=== PATIENT | male | born 1955 | race Caucasian/White ===

== ENCOUNTER 2020-04-19 16:28 | Inpatient (IN) | payer MEDICARE ==
[~2020-04-19] VITALS: Ht 172.7 cm; Wt 102.4 kg
--- OUTSIDE RECORDS SUMMARY | 2020-04-19 16:38 | CCD ---
Author Author [facility] Organization [facility] Address Unknown Phone Unavailable Support Name Relationship Address Phone RE Next Of Kin Unknown Unavailable CHEMICAL INTERCHANGE Next Of Kin Unknown Unavailable VINAY CLAROS Next Of Kin [address] [place], [place] [id number] Re-disclosure Warning The records that you are about to access may contain information from federally-assisted alcohol or drug abuse programs. If such information is present, then the following federally mandated warning applies: This information has been disclosed to you from records protected by federal confidentiality rules (42 CFR part 2). The federal rules prohibit you from making any further disclosure of this information unless further disclosure is expressly permitted by the written consent of the person to whom it pertains or as otherwise permitted by 42 CFR part 2. A general authorization for the release of medical or other information is NOT sufficient for this purpose. The Federal rules restrict any use of the information to criminally investigate or prosecute any alcohol or drug abuse patient.The records that you are about to access may contain highly sensitive health information, the redisclosure of which is protected by Article 27-F of the [facility] Public Health law. If you continue you may have access to information: Regarding HIV / AIDS; Provided by facilities licensed or operated by the [facility] Office of Mental Health; or Provided by the [facility] Office for People With Developmental Disabilities. If such information is present, then the following [facility] mandated warning applies: This information has been disclosed to you from confidential records which are protected by state law. State law prohibits you from making any further disclosure of this information without the specific written consent of the person to whom it pertains, or as otherwise permitted by law. Any unauthorized further disclosure in violation of state law may result in a fine or senior living sentence or both. A general authorization for the release of medical or other information is NOT sufficient authorization for further disc losure. Insurance Providers Payer name Policy type / Coverage type Policy ID Covered alliance party ID Covered alliance party's relationship to desai Policy Desai Plan Information MEDICARE [id number] A
[2020-04-19 17:40] LABS: BASO % 0.1 % (0.0-1.0); EOS % 0.1 % (0.0-3.0); HEMATOCRIT 39.1 % (42.0-52.0); HEMOGLOBIN 13.2 g/dl (13.5-17.5); LYMPH # 0.8 10^3/uL (1.5-5.0); LYMPH % 7.4 % (24.0-44.0); MEAN CORPUSCULAR HEMOGLOBIN 31.2 pg (27.0-33.0); MEAN CORPUSCULAR HGB CONC 33.8 g/dl (32.0-36.5); MEAN CORPUSCULAR VOLUME 92.4 fl (80.0-96.0); MONO # 0.5 10^3/uL (0.0-0.8); MONO % 4.5 % (0.0-5.0); NEUTROPHILS # 8.8 10^3/uL (1.5-8.5); NEUTROPHILS % 86.9 % (36.0-66.0); PLATELET COUNT, AUTOMATED 256 10^3/uL (150-450); RED BLOOD COUNT 4.23 10^6/uL (4.30-6.10); WHITE BLOOD COUNT 10.1 10^3/uL (4.0-10.0)
[2020-04-19 17:55] LABS: INR 1.08; PARTIAL THROMBOPLASTIN TIME 20.9 SECONDS (24.2-38.5); PROTHROMBIN TIME 14.2 SECONDS (12.5-14.3)
[2020-04-19 17:58] LABS: D-DIMER QUANT 3035.16 ng/ml (<500)
[2020-04-19] MEDS ORDERED: AZITHROMYCIN INJ 500 MG, VIAL MATE ADAPTER 1 EACH in D5W 250 ML IV ONE (18:00)
[2020-04-19] MEDS ORDERED: cefTRIAXone SOD 1 GM in D5W MINI-BAG PLUS 50 ML IV ONE (18:00)
[2020-04-19 18:06] LABS: ALT/SGPT 29 U/L (12-78); BILIRUBIN,TOTAL 0.5 MG/DL (0.2-1.0); BLOOD UREA NITROGEN 18 MG/DL (7-18); CALCIUM LEVEL 8.5 MG/DL (8.8-10.2); CARBON DIOXIDE LEVEL 25 MEQ/L (21-32); CHLORIDE LEVEL 105 MEQ/L (98-107); CK-MB VALUE MASS < 1.0 NG/ML (<3.6); CPK CREATINE PHOSPHOKINASE 354 U/L (39-308); CREATININE FOR GFR 1.03 MG/DL (0.70-1.30); FERRITIN 899 NG/ML (26-388); GLOMERULAR FILTRATION RATE > 60.0 (>49); GLUCOSE, FASTING 107 MG/DL (70-100); LDH LACTATE DEHYDROGENASE 654 U/L (87-241); MB/CK RELATIVE INDEX 0.28 (< OR =4); POTASSIUM SERUM 4.2 MEQ/L (3.5-5.1); SODIUM LEVEL 137 MEQ/L (136-145); TOTAL PROTEIN 6.4 GM/DL (6.4-8.2); TROPONIN I < 0.02 NG/ML (< 0.10)
--- NOTE | 2020-04-19 18:09 | REP ---
INDICATION: sob. COMPARISON: 08/15/2010 TECHNIQUE: Portable exam FINDINGS: The technique utilized in obtaining the radiograph has magnified the cardiac silhouette and accentuated the interstitial markings. Patchy interstitial and airspace opacities are seen throughout the lung [place] and right greater than left. Mild cardiomegaly is suspected accentuated by technique. The pleural angles are sharp. The osseous structures are stable and intact. IMPRESSION: There is either asymmetric pulmonary edema from cardiogenic or other causes versus pneumonia. <Electronically signed by Delmer Phoenix > 04/19/20 [id number]
[2020-04-19] MEDS ORDERED: guaiFENesin SYRUP 200 MG/10 ML UDC PO PRN (19:45)
--- OUTSIDE RECORDS SUMMARY | 2020-04-19 19:47 | CCD ---
Author Author [facility] Address Unknown Phone Unavailable Support Name Relationship Address Phone RE Next Of Kin Unknown Unavailable CHEMICAL INTERCHANGE Next Of Kin Unknown Unavailable VINAY MOORE Next Of Kin [address] [place] [address] Re-disclosure Warning The records that you are [...] is protected by Article 27-F of the [facility] Public Health law. If you continue you may have access to information: Regarding HIV / AIDS; Provided by facilities licensed or operated by the [facility] Office of Mental Health; or Provided by the [facility] Office for People With Developmental Disabilities. If such information is present, then the following [facility] mandated warning applies: This information has [...] law may result in a fine or fdc sentence or both. A general authorization for the release of medical or other information is NOT sufficient authorization for further disc losure. Insurance Providers Payer name Policy type / Coverage type Policy ID Covered republican ID Covered republican's relationship to desai Policy Desai Plan Information MEDICARE [id number] A
--- NOTE | 2020-04-19 19:48 | HPEPDOC ---
[facility] Medical History & Physical Date of Admission Apr 19, 2020 Date of Service: Apr 19, 2020 History and Physical CHIEF COMPLAINT: Shortness of breath HISTORY OF PRESENT ILLNESS: 64-year-old male no known past medical history known to be Covid positive with symptoms onset 15 days ago who presents with increased shortness of breath and cough. Patient tells me that he lives at home with his and son both her Covid positive his son is admitted to the hospital with Covid. His is doing well at home. Patient tells me he's been trying to manage his symptoms at home but he's been progressively getting weaker his appetite is decreased and he is not eating much and he's been having increased shortness of breath but his most troublesome symptom lately has been his uncontrollable cough which is followed by episodes of nausea but no vomiting. He also endorses some fevers and chills at home. Patient denies any chest pain. In the emergency department patient was found to be hypoxic down to 80% requiring supplemental oxygen he is currently saturating at 92% on 2 L of supplemental oxygen by nasal cannula. He was also given 1 dose of ceftriaxone and azithromycin. Inflammatory Covid markers were completed were found to be elevated. 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 REVIEW OF SYSTEMS: 10 point review of systems complete all negative otherwise stated in HPI HOME MEDICATIONS: Please see below. PHYSICAL EXAMINATION: Constitutional: Awake and alert, in no apparent distress ENT: Sclera are clear Respiratory: Lungs CTA bilaterally. No respiratory distress. No use of accessory muscles. on 2L o2 by NC saturating 92% Cardiovascular: RRR S1 and S2 are normal, no murmur Gastrointestinal: Abdomen is soft, non distended, non tender, BS present. Musculoskeletal: No lower extremity edema. Neurologic: No focal neurological deficit. Mental Status: A&O x3, normal affect Skin: Warm, dry LABORATORY DATA: See below. IMAGING: cxr impressions: There is either asymmetric pulmonary edema from cardiogenic or other causes versus pneumonia. MICROBIOLOGY: Please see below. ASSESSMENT/PLAN 64M: COVID+ no known past medical history onset of Covid 15 days ago has been progressively worsening with increased dyspnea and cough fevers and chills. Possible superimposed bacterial pneumonia, requiring supplemental oxygen was admitted for medical management. # Hypoxic respiratory failure 2/2 Covid 19 infection with possible superimposed bacterial pneumonia: - Initial inflammatory markers elevated. Trend inflammatory markers. IV Decadron daily. Lovenox COVID prophylactic dosing due to obesity. Continue supplemental oxygen O2 target 90% or better. Out of window for rimdasivir, symptoms onset 15 days ago. - Possible superimposed bacterial pneumonia. Started IV ceftriaxone and azithromycin. Follow blood cultures. follow-up pro-calcitonin if negative can DC Abx. # DVT prophylaxis: Lovenox COVID prophylactic dosing. A [facility] Hospitalist Vital Signs Vital Signs Date Time Temp Pulse Resp B/P (MAP) Pulse Ox O2 Delivery O2 Flow Rate FiO2 04/19/20 18:43 62 22 91 04/19/20 18:21 Nasal Cannula 04/19/20 18:16 2.0 04/19/20 18:07 98.2 111/56 Laboratory Data Labs 24H Laboratory Tests 2 04/19/20 17:24: Immature Granulocyte % (Auto) 1.0, Neutrophils (%) (Auto) 86.9H, Lymphocytes (%) (Auto) 7.4L, Monocytes (%) (Auto) 4.5, Eosinophils (%) (Auto) 0.1, Basophils (%) (Auto) 0.1, Neutrophils # (Auto) 8.8H, Lymphocytes # (Auto) 0.8L, Monocytes # (Auto) 0.5, Eosinophils # (Auto) 0.0, Basophils # (Auto) 0.0, Nucleated Red Blood Cells % (auto) 0.0, Prothrombin Time 14.2H, Prothromb Time International Ratio 1.08, Activated Partial Thromboplast Time 20.9L, Fibrinogen 569H, D-Dimer, Quantitative 3035.16H, Anion Gap 7L, Glomerular Filtration Rate > 60.0, Calcium Level 8.5L, Magnesium Level 2.0, Ferritin 899H, Total Bilirubin 0.5, Aspartate Amino Transf (AST/SGOT) 52H, Alanine Aminotransferase (ALT/SGPT) 29, Alkaline Phosphatase 53, Lactate Dehydrogenase 654H, Total Creatine Kinase 354H, Creatine Kinase MB < 1.0, Creatine Kinase MB Relative Index 0.28, Troponin I < 0.02, C- Reactive Protein, Quantitative 14.50H, Total Protein 6.4, Albumin 3.0L, Albumin/Globulin Ratio 0.9, Procalcitonin 0.23 04/19/20 17:40: Lactic Acid Level 1.3 CBC/BMP Laboratory Tests 04/19/20 17:24 Microbiology Microbiology 04/19/20 Blood Culture, Received Pending 04/19/20 Blood Culture, Received Pending Home Medications No Active Prescriptions or Reported Meds Allergies Coded Allergies: No Known Allergies (Unverified , 04/19/20) A-FIB/CHADSVASC A-FIB History Current/History of A-Fib/PAF?: No YOUSEJUAN LUIS Bustillo MD Apr 19, 2020 19:47
--- OUTSIDE RECORDS SUMMARY | 2020-04-19 19:57 | CCD ---
Author Author [facility] Address Unknown Phone Unavailable Support Name Relationship Address Phone RE Next Of Kin Unknown Unavailable CHEMICAL INTERCHANGE Next Of Kin Unknown Unavailable VINAY MOORE Next Of Kin [address] [place] [address] Re-disclosure Warning The records that you are [...] is protected by Article 27-F of the [facility] Public Health law. If you continue you may have access to information: Regarding HIV / AIDS; Provided by facilities licensed or operated by the [facility] Office of Mental Health; or Provided by the [facility] Office for People With Developmental Disabilities. If such information is present, then the following [facility] mandated warning applies: This information has [...] type / Coverage type Policy ID Covered libertarian ID Covered libertarian's relationship to desai Policy Desai Plan Information MEDICARE [id number] A
[2020-04-19] MEDS: BENZONATATE 100 MG CAP PO SCH (22:34)
[2020-04-19 23:09] VITALS: BP 148/61
[2020-04-20] VITALS (10 sets, daily range): BP systolic 124–135; BP diastolic 61–73; O2SAT 90–94
[2020-04-20] MEDS: dexameTHASONE 4 MG/ML 1ML VIAL (J1100 PER 1MG) IV SCH ×2 (00:13→10:26)
[2020-04-20] MEDS: ENOXAPARIN 60MG/0.6ML SYRINGE (J1650 PER 10MG) SC SCH ×2 (00:14→10:27)
[2020-04-20] MEDS ORDERED: ACETAMINOPHEN TAB 650MG DOSE (2X325MG) PO PRN (02:00)
[2020-04-20 06:53] LABS: HEMATOCRIT 38.2 % (42.0-52.0); HEMOGLOBIN 12.8 g/dl (13.5-17.5); MEAN CORPUSCULAR HEMOGLOBIN 31.4 pg (27.0-33.0); MEAN CORPUSCULAR HGB CONC 33.5 g/dl (32.0-36.5); MEAN CORPUSCULAR VOLUME 93.6 fl (80.0-96.0); PLATELET COUNT, AUTOMATED 272 10^3/uL (150-450); RED BLOOD COUNT 4.08 10^6/uL (4.30-6.10); WHITE BLOOD COUNT 8.6 10^3/uL (4.0-10.0)
[2020-04-20 07:20] LABS: BLOOD UREA NITROGEN 21 MG/DL (7-18); CALCIUM LEVEL 8.6 MG/DL (8.8-10.2); CARBON DIOXIDE LEVEL 29 MEQ/L (21-32); CHLORIDE LEVEL 104 MEQ/L (98-107); CREATININE FOR GFR 1.14 MG/DL (0.70-1.30); GLOMERULAR FILTRATION RATE > 60.0 (>49); GLUCOSE, FASTING 125 MG/DL (70-100); MAGNESIUM LEVEL 2.3 MG/DL (1.8-2.4); POTASSIUM SERUM 4.5 MEQ/L (3.5-5.1); SODIUM LEVEL 138 MEQ/L (136-145)
[2020-04-20 07:24] LABS: ALBUMIN 2.6 GM/DL (3.2-5.2); BILIRUBIN,DIRECT 0.2 MG/DL (0.0-0.2); BILIRUBIN,TOTAL 0.5 MG/DL (0.2-1.0); C REACTIVE PROTEIN QUANTITATIV 14.8 MG/DL (0.00-0.30); TOTAL PROTEIN 5.9 GM/DL (6.4-8.2)
[2020-04-20 07:31] LABS: D-DIMER QUANT 3381.78 ng/ml (<500)
[2020-04-20 07:38] LABS: ANISOCYTOSIS 1+; LYMPHOCYTES 6 % (16-44); MONOCYTES 3 % (0-5); NEUTROPHILS 90 % (28-66); PLATELET ESTIMATE NORMAL (NORMAL)
--- NOTE | 2020-04-20 08:35 | ECGEPIP ---
[facility] - ED Test Date: 2020-04-19 Pat Name: PADMINI MOORE Department: Room: - Gender: Male Shampooer: : 1955 Requested By: Marisol Chahal Order Number: [id number] Reading MD: Ignacio Mark Measurements Intervals [place] Rate: 72 P: 24 VA: 172 QRS: -20 QRSD: 104 T: 0 QT: 388 QTc: 427 Interpretive Statements SINUS RHYTHM MODERATE VOLTAGE CRITERIA FOR LVH, CONSIDER NORMAL VARIANT POOR R WAVE PROGRESSION NO PRIORS FOR COMPARISON Electronically Signed on 04-20-2020 8:34:51 EST by Ignacio Mark
[2020-04-20] MEDS: BENZONATATE 100 MG CAP PO SCH ×3 (10:27→23:27)
[2020-04-20] MEDS ORDERED: ISOVUE-370 76% 100ML VIAL As Ordered ONE (11:43)
--- NOTE | 2020-04-20 12:24 | REP ---
INDICATION: R/O PE. Patient has COVID-19. COMPARISON: None TECHNIQUE: CT angiography. 100 cc Isovue 370. FINDINGS: There is excellent visualization of the pulmonary arterial vasculature. There are no focal filling defects present that would be considered consistent with acute pulmonary emboli. There are no pleural or pericardial effusions. The imaged upper abdomen and imaged osseous structures are within normal limits. Evaluation of the lung [place] shows extensive right lung and moderate left lung airspace and ground-glass opacities. IMPRESSION: 1. There is no evidence of an acute pulmonary embolus. 2. Abnormal lung field opacities consistent with the patient's diagnosis of COVID-19 pneumonia. <Electronically signed by Delmer Phoenix > 04/20/20 [id number]
[2020-04-20] MEDS ORDERED: ONDANSETRON 4MG/2ML VIAL IV PRN (13:30)
[2020-04-20] MEDS ORDERED: GUAI100S51 PO (14:47)
[2020-04-20] MEDS ORDERED: AUGM875T28 PO (14:47)
[2020-04-20] MEDS ORDERED: VENTAER INH (14:47)
[2020-04-20] MEDS ORDERED: ZOFR4TAB16 PO (14:47)
[2020-04-20] MEDS ORDERED: DEXA1TA PO (14:47)
--- NOTE | 2020-04-20 14:53 | DS.PDOC ---
Discharge Summary General Date of Admission Apr 19, 2020 at 19:29 Date of Discharge 04/20/20 Discharge Summary Chief complaints Shortness of breath Final diagnosis Covid 19 interstitial pneumonia Hypoxic respiratory failure History of present illness and Hospital course 64-year-old male no known past medical history known to be Covid positive with symptoms onset 15 days ago who presents with increased shortness of breath and cough. Patient sees that he lives at home with his and son both her Covid positive his son is admitted to the hospital with Covid. His is doing well at home. Patient tells me he's been trying to manage his symptoms at home but he's been progressively getting weaker his appetite is decreased and he is not eating much and he's been having increased shortness of breath but his most troublesome symptom lately has been his uncontrollable cough which is followed by episodes of nausea but no vomiting. In the emergency department patient was found to be hypoxic down to 80% requiring supplemental oxygen he is currently saturating at 92% on 2 L of supplemental oxygen by nasal cannula. He was also given 1 dose of ceftriaxone and azithromycin. Inflammatory Covid markers were completed were found to be elevated. This morning he was doing better on 3-4 L. He passed a home oxygen evaluation and will be sent home on 3 L of oxygen at rest and 4 L on activity. He has been advised that he might require this oxygen for the next 3-4 weeks because of his interstitial Covid pneumonia. He got us CTA to rule out pulmonary embolism which came out to be negative, but the CAT scan did show interstitial pneumonia consistent Covid 19. He will be given albuterol inhalers along with Augmentin for 5 days. He also will be given to eczematous on for the next 7 days. He might require PFTs once his all symptoms are resolved in the next 4 weeks. He will be given a follow-up appointment with PCP in 1 week. I had a detailed discussion with him regarding his clinical condition and spoke to the daughter as well. I and my opinion, the maximal benefit has been opting from this stay and he has been advised that in case his symptoms worsen, he should report back to the ER or contact his PCP. PHYSICAL EXAMINATION: Constitutional: Awake and alert, in no apparent distress ENT: Sclera are clear Respiratory: Lungs CTA bilaterally. No respiratory distress. No use of accessory muscles. on 2L o2 by NC saturating 92% Cardiovascular: RRR S1 and S2 are normal, no murmur Gastrointestinal: Abdomen is soft, non distended, non tender, BS present. Musculoskeletal: No lower extremity edema. Neurologic: No focal neurological deficit. Mental Status: A&O x3, normal affect Skin: Warm LABORATORY DATA: See below. IMAGING: Reviewed Medications. As per discharge reconciliation medication list. , Albuterol, dexamethasone, Augmentin and Zofran have been added Activity as tolerated Diet. 2 g sodium diet Follow-up appointments. PCP in 1 week. Condition on discharge. Patient is medically optimized for discharge Discharge disposition: Home Total time spent on this discharge including coordination of care, review of chart documentation and actual patient contact is around 35 minutes Vital Signs/I&Os Vital Signs Date Time Temp Pulse Resp B/P (MAP) Pulse Ox O2 Delivery O2 Flow Rate FiO2 04/20/20 08:00 96.8 65 18 124/72 (89) 92 Nasal Cannula 4.0 I&O- Last 24 Hours up to 6 AM 04/20/20 06:00 Intake Total 305 ml Output Total 0 ml Balance 305 ml Laboratory Data Labs 24H Laboratory Tests 2 04/19/20 17:24: Immature Granulocyte % (Auto) 1.0, Neutrophils (%) (Auto) 86.9H, Lymphocytes (%) (Auto) 7.4L, Monocytes (%) (Auto) 4.5, Eosinophils (%) (Auto) 0.1, Basophils (%) (Auto) 0.1, Neutrophils # (Auto) 8.8H, Lymphocytes # (Auto) 0.8L, Monocytes # (Auto) 0.5, Eosinophils # (Auto) 0.0, Basophils # (Auto) 0.0, Nucleated Red Blood Cells % (auto) 0.0, Prothrombin Time 14.2H, Prothromb Time International Ratio 1.08, Activated Partial Thromboplast Time 20.9L, Fibrinogen 569H, D-Dimer, Quantitative 3035.16H, Anion Gap 7L, Glomerular Filtration Rate > 60.0, Calcium Level 8.5L, Magnesium Level 2.0, Ferritin 899H, Total Bilirubin 0.5, Aspartate Amino Transf (AST/SGOT) 52H, Alanine Aminotransferase (ALT/SGPT) 29, Alkaline Phosphatase 53, Lactate Dehydrogenase 654H, Total Creatine Kinase 354H, Creatine Kinase MB < 1.0, Creatine Kinase MB Relative Index 0.28, Troponin I < 0.02, C- Reactive Protein, Quantitative 14.50H, Total Protein 6.4, Albumin 3.0L, Albumin/Globulin Ratio 0.9, Procalcitonin 0.23 04/19/20 17:40: Lactic Acid Level 1.3 04/19/20 19:58: Procalcitonin 0.16 04/20/20 06:14: Neutrophils (%) (Auto) , Nucleated Red Blood Cells % (auto) 0.0, Fibrinogen 585H, D-Dimer, Quantitative 3381.78H, Anion Gap 5L, Glomerular Filtration Rate > 60.0, Calcium Level 8.6L, Magnesium Level 2.3, Ferritin 884H, Total Bilirubin 0.5, Aspartate Amino Transf (AST/SGOT) 47H, Alanine Aminotransferase (ALT/SGPT) 27, Alkaline Phosphatase 52, Lactate Dehydrogenase 568H, C-Reactive Protein, Quantitative 14.80H, Total Protein 5.9L, Albumin 2.6L, Albumin/Globulin Ratio 0.8, Neutrophils 90H, Band Neutrophils 1, Lymphocytes (Manual) 6L, Monocytes (Manual) 3, Anisocytosis 1+, Platelet Estimate NORMAL, Direct Bilirubin 0.2 CBC/BMP Laboratory Tests 04/19/20 17:24 04/20/20 06:14 Microbiology Microbiology 04/19/20 Blood Culture, Received Pending 04/19/20 Blood Culture, Received Pending Discharge Medications Scheduled Amoxicillin/Potassium Clav (Augmentin 875-125 Tablet) 1 Each Tablet, 1 TAB PO BID Dexamethasone (Dexamethasone) 1 Mg Tablet, 1 MG PO ONCE Ondansetron HCl (Zofran) 4 Mg Tablet, 4 MG PO Q6H Scheduled PRN Albuterol Sulfate (Ventolin Hfa) 18 Gm Hfa.aer.ad, 2 PUFF INH Q4-6HP PRN for wheezing Guaifenesin (Guaifenesin) 100 Mg/5 Ml Liquid, 10 ML PO Q4HP PRN for COUGH Allergies Coded Allergies: No Known Allergies (Unverified , 04/19/20) JIN FOSTER MD Apr 20, 2020 14:53
[2020-04-20] MEDS ORDERED: TESS100C PO (17:06)
[2020-04-20] MEDS ORDERED: cefTRIAXone SOD 1 GM in D5W MINI-BAG PLUS 50 ML IV SCH (18:00)
[2020-04-20] MEDS ORDERED: AZITHROMYCIN INJ 500 MG, VIAL MATE ADAPTER 1 EACH in D5W 250 ML IV SCH (20:00)
[2020-04-20] MEDS ORDERED: AZITHROMYCIN 250MG TABLET PO ONE (21:15)
--- NOTE | 2020-04-20 22:06 | IPNPDOC ---
Text Note Date of Service The discussion took place on 04/20/20. NOTE While on nights for the hospitalist service, I was contacted by [facility] with concerns about Mr. Claros's discharge. Reportedly he was telling family members that "they are pushing me out of here and I'm not ready to go." His daughter wants a call before discharging the patient. I called and spoke with Dr. Lunsford, the day time attending, before calling his daughter. I called and spoke with his daughter Vik . She expressed significant concerns about his ability to care for himself at home. She stated that if we discharge him tonight, "we are sending him into a very dangerous situation." She feels like there is, "zero chance that he can manage his oxygen at home" and that, "there is no one that can help him at home as his is also too sick with COVID-19 to be responsible for anything." Apparently, he was offered home healthcare by [facility] earlier today which he declined. His daughter disagrees with this decision and thinks it will put him a t risk. I explained that he is clinically stable on 4L of O2 via NC and that he is medically stable for discharge on this therapy; she disagrees with this - in her opinion this does not reflect a stable patient. She requested that we transfer him to [facility] if we don't have beds. I explained that I would literally be laughed at on the phone if I called to request transfer to [facility] - or [facility] or [facility] - for a patient his condition. In the end, because of a lingering concern about his social situation, I agreed to hold his discharge for this evening. I made it eminently clear that he will likely require oxygen for 3-4 weeks or more and that he MAY NOT stay here that long. We will see if [facility] can work with him and the family again tomorrow to resolve some of the social concerns. However, he needs to leave [facility] for his own continued health and safety. VS,Sheriee, I+O VS, Pedro Luisbone, I+O Laboratory Tests 04/20/20 06:14 Vital Signs Date Time Temp Pulse Resp B/P (MAP) Pulse Ox O2 Delivery O2 Flow Rate FiO2 04/20/20 16:00 4.0 04/20/20 16:00 91 Nasal Cannula 04/20/20 15:38 98.5 64 18 124/61 (82) I&O- Last 24 Hours up to 6 AM 04/20/20 06:00 Intake Total 305 ml Output Total 0 ml Balance 305 ml Doc Mcnamara MD Apr 20, 2020 22:05
[2020-04-21 06:08] VITALS: BP 129/61
[2020-04-21 06:32] LABS: MEAN CORPUSCULAR HEMOGLOBIN 31.2 pg (27.0-33.0); MEAN CORPUSCULAR HGB CONC 34.2 g/dl (32.0-36.5); MEAN CORPUSCULAR VOLUME 91.1 fl (80.0-96.0); PLATELET COUNT, AUTOMATED 358 10^3/uL (150-450); RED BLOOD COUNT 4.17 10^6/uL (4.30-6.10); WHITE BLOOD COUNT 17.1 10^3/uL (4.0-10.0)
[2020-04-21 06:51] LABS: BLOOD UREA NITROGEN 28 MG/DL (7-18); CALCIUM LEVEL 8.2 MG/DL (8.8-10.2); CARBON DIOXIDE LEVEL 26 MEQ/L (21-32); CHLORIDE LEVEL 106 MEQ/L (98-107); GLOMERULAR FILTRATION RATE > 60.0 (>49); GLUCOSE, FASTING 136 MG/DL (70-100); MAGNESIUM LEVEL 2.4 MG/DL (1.8-2.4); POTASSIUM SERUM 4.2 MEQ/L (3.5-5.1); SODIUM LEVEL 139 MEQ/L (136-145)
[2020-04-21 07:04] LABS: MONOCYTES 6 % (0-5); NEUTROPHILS 83 % (28-66)
[2020-04-21 07:07] LABS: ATYPICAL LYMPH 4 % (0-5); LYMPHOCYTES 7 % (16-44); PLATELET ESTIMATE NORMAL (NORMAL)
[2020-04-21] MEDS: AUGMENTIN 875 MG TAB PO SCH ×2 (10:27→21:32)
[2020-04-21] MEDS: BENZONATATE 100 MG CAP PO SCH ×3 (10:27→21:29)
[2020-04-21 12:33] VITALS: BP 149/68
--- NOTE | 2020-04-21 19:16 | IPNPDOC ---
Subjective Date Seen The patient was seen on 04/21/20. Subjective Chief Complaint/HPI Mr. Claros is a 64 year old male who tested positive for COVID 19 infection. Last night, daughter did not feel comfortable with him going home and he stayed the night. This morning, patient was feeling fatigued and malaise. He felt nauseous after eating breakfast, but he was forcing himself to eat. He has been ambulating independently in the room and remains stable on 4L of oxygen. I let him know because this is a viral infection, it may take several weeks for him to feel better. He was still anxious about home and wanted me to speak with the daughter. I spoke with the daughter. She was very anxious about the father. He was sick for about 15 days before she could convince him to come to the ED. She is worried that if he were to go home, no one would know if he got worse since he would not call for an ambulance. He does live with his , but his is ill at this time. She was also concerned that he was on a lot of oxygen. She does not want him to go home. I contacted [facility] education diagnostician. [facility] let the daughter know that if he stays, insurance may given them a denial and they may have to pay for the days he did not go home. The daughter still wants him in the hospital. I spoke with the patient again and reiterated that if he were to worsen (fever, worsening hypoxia, worsening dyspnea), he should go to the ED. He was a little c onfused and said that if he was too sick to travel he should stay at home unless if he was dying. He is A&Ox3, but he said he was having some mental fogginess. Objective Physical Examination General Exam: Positive: Alert, Cooperative Eye Exam: Positive: EOMI; Negative: Sclera icteric ENT Exam: Positive: Atraumatic Neck Exam: Positive: Supple Chest Exam: Positive: Clear to auscultation; Negative: Rales, Rhonchi, Wheezing Heart Exam: Positive: Rate Normal, Regular Rhythm Abdomen Exam: Positive: Normal bowel sounds, Soft; Negative: Tenderness Extremity Exam: Negative: Edema Neuro Exam: Positive: Normal Speech Psych Exam: Positive: Anxiety, Oriented x 3 Assessment /Plan Assessment Mr. Claros is a 64 year old male who tested positive for COVID 19 infection. He is outside the window for remdesivir. He continues on steroids and antibiotics. Switch to oral medications as his IV's are out. He is independent in the room and on 4L of oxygen. Oxygen has be set up and he has an oxygen tank waiting outside the room. He is very anxious about home at this moment. Plan/VTE VTE Prophylaxis Ordered?: Yes Plan 1. COVID pneumonia -Symptoms started 15 days prior to admission -Outside window for remdesivir -Supplemental oxygen (4L), Steroids, and Antibiotics -Currently ambulatory and independent in the room 2. DVT ppx -Lovenox VS, I&O, 24H, Fishbone Vital Signs/I&O Vital Signs Date Time Temp Pulse Resp B/P (MAP) Pulse Ox O2 Delivery O2 Flow Rate FiO2 04/21/20 16:00 4.0 04/21/20 12:33 97.0 79 19 149/68 (95) 89 Nasal Cannula I&O- Last 24 Hours up to 6 AM 04/21/20 06:00 Intake Total 1080 ml Output Total 0 ml Balance 1080 ml Laboratory Data 24H LABS Laboratory Tests 2 04/21/20 06:16: Neutrophils (%) (Auto) , Nucleated Red Blood Cells % (auto) 0.0, Neutrophils 83H, Lymphocytes (Manual) 7L, Monocytes (Manual) 6H, Atypical Lymphocytes 4, Platelet Estimate NORMAL 04/21/20 06:17: Anion Gap 7L, Glomerular Filtration Rate > 60.0, Calcium Level 8.2L, Magnesium Level 2.4 CBC/BMP Laboratory Tests 04/21/20 06:16 04/21/20 06:17 Microbiology Microbiology 04/19/20 Blood Culture - Preliminary, Resulted No Growth after 48 hours. All Specime... 04/19/20 Blood Culture - Preliminary, Resulted No Growth after 48 hours. All Specime... DIMITRI DHILLON DO Apr 21, 2020 19:15
[2020-04-21] MEDS: ONDANSETRON 4 MG ORAL DISINTEGRATING TAB PO PRN (19:29)
[2020-04-21] MEDS: ENOXAPARIN 60MG/0.6ML SYRINGE (J1650 PER 10MG) SC SCH (21:29)
[2020-04-21 21:35] VITALS: BP 127/60
[2020-04-22 04:51] VITALS: BP 127/64
[2020-04-22 07:33] LABS: HEMATOCRIT 38.1 % (42.0-52.0); HEMOGLOBIN 12.8 g/dl (13.5-17.5); MEAN CORPUSCULAR HEMOGLOBIN 30.8 pg (27.0-33.0); MEAN CORPUSCULAR HGB CONC 33.6 g/dl (32.0-36.5); MEAN CORPUSCULAR VOLUME 91.8 fl (80.0-96.0); PLATELET COUNT, AUTOMATED 421 10^3/uL (150-450); RED BLOOD COUNT 4.15 10^6/uL (4.30-6.10); WHITE BLOOD COUNT 18.7 10^3/uL (4.0-10.0)
[2020-04-22 08:02] LABS: BLOOD UREA NITROGEN 36 MG/DL (7-18); C REACTIVE PROTEIN QUANTITATIV 4.67 MG/DL (0.00-0.30); CALCIUM LEVEL 8.7 MG/DL (8.8-10.2); CARBON DIOXIDE LEVEL 26 MEQ/L (21-32); CHLORIDE LEVEL 107 MEQ/L (98-107); CREATININE FOR GFR 0.99 MG/DL (0.70-1.30); FERRITIN 783 NG/ML (26-388); GLOMERULAR FILTRATION RATE > 60.0 (>49); GLUCOSE, FASTING 114 MG/DL (70-100); MAGNESIUM LEVEL 2.3 MG/DL (1.8-2.4); POTASSIUM SERUM 4.8 MEQ/L (3.5-5.1); SODIUM LEVEL 141 MEQ/L (136-145)
[2020-04-22] MEDS: BENZONATATE 100 MG CAP PO SCH (08:48)
[2020-04-22] MEDS: AUGMENTIN 875 MG TAB PO SCH (08:48)
[2020-04-22] MEDS: ENOXAPARIN 60MG/0.6ML SYRINGE (J1650 PER 10MG) SC SCH (08:49)
[2020-04-22] MEDS: ONDANSETRON 4 MG ORAL DISINTEGRATING TAB PO PRN (08:52)
[2020-04-22 09:05] LABS: LYMPHOCYTES 6 % (16-44); MONOCYTES 4 % (0-5); NEUTROPHILS 89 % (28-66)
[2020-04-22 09:06] LABS: PLATELET ESTIMATE INCREASED (NORMAL)
[2020-04-22] MEDS ORDERED: ONDA4TAB6 PO (10:14)
[2020-04-22] MEDS ORDERED: METH4TAB8 PO (10:32)
--- NOTE | 2020-04-22 21:17 | IPNPDOC ---
Subjective Date Seen The patient was seen on 04/22/20. Subjective Chief Complaint/HPI Please see discharge summary on 04/20/2020 Mr. Claros is a 64 year old male who tested positive for COVID 19 infection. Patient was supposed to be discharged on 04/20/2020, but both the patient and daughter did not feel comfortable with him going home. On 04/21/2020, both myself and the PFS material handler floorperson (Shikha Corral) spoke with the daughter about going home. Patient stayed one night to see how he felt. Overnight, there were no events. He continued on 4L NC. This morning, he was feeling better. Still fatigued and dyspneic, but better than yesterday. He felt okay about going home. I reiterated that if he were to feel worsening dyspnea, fever, hypoxia or chest pain he can come to the ED. I contacted the daughter. She understood he was going home with home oxygen. I told her that his inflammatory markers have declined. CRP declined from 14.8 to 4.67. D-dimer declined from 3381 to 1343. She requested that we have a scripted filled out for [facility] for Pulse Oximeter [employer] Rad-8. Patient was discharged today on 04/22/2020 Objective Physical Examination General Exam: Positive: Alert, Cooperative Eye Exam: Positive: EOMI ENT Exam: Positive: Atraumatic Neck Exam: Positive: Supple Chest Exam: Positive: Clear to auscultation Heart Exam: Positive: Rate Normal, Regular Rhythm Abdomen Exam: Positive: Normal bowel sounds, Soft Extremity Exam: Negative: Edema Neuro Exam: Positive: Normal Speech Psych Exam: Positive: Anxiety, Oriented x 3 Assessment /Plan Plan/VTE VTE Prophylaxis Ordered?: Yes Plan Imaging CT angio chest 1. There is no evidence of an acute pulmonary embolus. 2. Abnormal lung field opacities consistent with the patient's diagnosis of COVID-19 pneumonia. Activity: As tolerated Diet: 2gm sodium diet Disposition: Home with home services Follow up 1. Follow up with PCP within 1 week 2. 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 steroids and take to completion Total time spent on discharge planning, discharge summary, and medication reconciliation 35 minutes VS, I&O, 24H, Fishbone Vital Signs/I&O Vital Signs Date Time Temp Pulse Resp B/P (MAP) Pulse Ox O2 Delivery O2 Flow Rate FiO2 04/22/20 04:51 98.1 55 22 127/64 (85) 92 Nasal Cannula 4.0 I&O- Last 24 Hours up to 6 AM 04/22/20 06:00 Intake Total 1070 ml Output Total 550 ml Balance 520 ml Laboratory Data 24H LABS Laboratory Tests 2 04/22/20 07:03: Neutrophils (%) (Auto) , Nucleated Red Blood Cells % (auto) 0.0, Neutrophils 89H, Band Neutrophils 1, Lymphocytes (Manual) 6L, Monocytes (Manual) 4, Platelet Estimate INCREASED, D-Dimer, Quantitative 1343.65H, Anion Gap 8, Glomerular Filtration Rate > 60.0, Calcium Level 8.7L, Magnesium Level 2.3, Ferritin 783H, C-Reactive Protein, Quantitative 4.67H CBC/BMP Laboratory Tests 04/22/20 07:03 Microbiology Microbiology 04/19/20 Blood Culture - Preliminary, Resulted No Growth after 72 hours. All specime... 04/19/20 Blood Culture - Preliminary, Resulted No Growth after 72 hours. All specime... DIMITRI DHILLON DO Apr 22, 2020 21:17
[2020-04-23 16:08] LABS: MYCOPLASMA PNEUMONIAE IgG <100 U/mL (0-99); MYCOPLASMA PNEUMONIAE IgM <770 U/mL (0-769)
== END 2020-04-22 13:29 | disposition home health service (06) | DRG 177 ==
LOC: M ED 16:28 → M ED INP 19:29 → M 4MAIN 23:01
PROVIDERS: ADMIT Family Medicine; ATTEND Internal Medicine
DX: U07.1 COVID-19 (principal); J12.89 Other viral pneumonia; J96.91 Respiratory failure, unspecified with hypoxia

== ENCOUNTER → 2020-05-15 | Outpatient (REF) | payer MEDICARE ==
[~2020-05-15] MED LIST: AUGM875T28 PO; DEXA1TA PO; GUAI100S51 PO; METH4TAB8 PO; ONDA4TAB6 PO; TESS100C PO; VENTAER INH; ZOFR4TAB16 PO
[2020-05-15 15:54] LABS: HEMOGLOBIN A1c 5.3 %
[2020-05-15 15:55] LABS: CHOLESTEROL RISK RATIO 2.909 (<5)
== END ==
LOC: M SFHCPLAZ 13:48
PROVIDERS: ATTEND Family Medicine
DX: Z13.220 Encounter for screening for lipoid disorders (principal); Z13.1 Encounter for screening for diabetes mellitus; Z79.899 Other long term (current) drug therapy
CPT/HCPCS: 36415; 80061; 83036; G0463

== ENCOUNTER → 2023-08-27 | Outpatient (REF) | payer MEDICARE | LOC: M LAB REF 17:12 | PROVIDERS: ATTEND Internal Medicine | DX: G60.9 Hereditary and idiopathic neuropathy, unspecified (principal) ==